=== PATIENT | female | born 1970 | race Caucasian/White ===

== ENCOUNTER 2017-05-24 08:14 | Outpatient (CLI) | payer OTHER | END 2017-05-24 08:15 | disposition home or self-care (01) | LOC: BICMAMMO 08:14 | PROVIDERS: ATTEND Obstetrics & Gynecology | DX: Z12.31 Encounter for screening mammogram for malignant neoplasm of breast (principal); R92.1 Mammographic calcification found on diagnostic imaging of breast | CPT/HCPCS: 77063; 77067 ==

== ENCOUNTER 2017-12-26 13:40 | Observation (INO) | payer OTHER ==
[~2017-12-26 13:40] MED LIST: ISOVUE-370 76%-LOCM 1 ML ONE
[2017-12-26 14:01] LABS: #Basophils 0.1 thou/uL (0.0-0.2); #Eosinphils 0.1 thou/uL (0.0-0.7); #Lymphocytes 3.3 thou/uL (1.20-3.40); #Monocytes 0.6 thou/uL (0.11-0.59); #Neutrophils 6.6 thou/uL (1.40-6.50); %Basophils 0.7 % (0.0-1.0); %Lymphocytes 30.7 % (21.0-51.0); %Monocytes 5.5 % (0.0-10.0); %Neutrophils 62.1 % (42.0-75.0); Hemoglobin 14.5 g/dL (12.0-16.0); Mean Corpuscular HGB CONC 32.8 g/dL (32.0-36.0); Mean Corpuscular Hemoglobin 31.6 pg (27.0-31.0); Mean Corpuscular Volume 96.4 fL (78.0-98.0); Platelet Count 313 thou/uL (130-400); RBC Distribution Width 10.9 % (11.5-14.5); White Blood Cell (WBC) Count 10.6 thou/uL (4.8-10.8)
[2017-12-26 14:13] LABS: PTT 33.2 SEC (22.9-36.1); Prothrombin Time 13.6 SEC (12.0-14.7)
[2017-12-26 14:14] LABS: ALT (SGPT) 43 U/L (8-55); AST (SGOT) 27 U/L (5-34); Albumin 4.7 g/dL (3.5-5.0); Alkaline Phosphatase 81 U/L (40-150); Anion Gap 12 mmol/L (10-20); BUN (Urea Nitrogen) 11 mg/dL (7.0-18.7); Bilirubin, Total 0.4 mg/dL (0.2-1.2); CK (CPK) 73 U/L (29-168); Calc. Creatinine Clearance 0 mL/min (70-130); Calcium 9.9 mg/dL (7.8-10.44); Carbon Dioxide 26 mmol/L (22-29); Chloride 104 mmol/L (98-107); Estimated GFR-MDRD 69; Globulin 3.3 g/dL (2.4-3.5); Glucose 111 mg/dL (70-105); Potassium 3.8 mmol/L (3.5-5.1); Sodium 138 mmol/L (136-145)
[2017-12-26 14:18] LABS: CKMB 0.7 ng/mL (0-6.6); Troponin I Less than 0.010 ng/mL (< 0.028)
--- NOTE | 2017-12-26 14:21 | CT ---
CT BRAIN NONCONTRAST: DATE: 12-26-17 TIME: 2:02 P.M. HISTORY: 47-year-old female with acute stroke symptoms: Sudden onset right sided visual changes, dizziness, na usea, confusion/altered mental status, and dysarthria. This acute stroke protocol report was called STAT at 2:09 p.m. on 12-26-17. Code CR FINDINGS: There is no midline shift or any other mass effect. There is no evidence of acute intracranial hemor rhage, large cortical infarct, obstructive hydrocephalus, or extraaxial fluid collection. The calvar ium is intact. IMPRESSION: No acute intracranial findings. deidra POS: [facility]
--- NOTE | 2017-12-26 15:11 | CT ---
CT ARTERIOGRAM NECK WITH IV CONTRAST AND 3D MIP IMAGING: CT ARTERIOGRAM HEAD WITH IV CONTRAST AND 3D MIP IMAGING: CT BRAIN WITH IV CONTRAST: HISTORY: Altered mental status. Difficulty seeing out of right eye. Dizziness. Nausea. FINDINGS: There is a bovine origin of the great vessels at the aortic arch. There is good contrast flow into e ach carotid and vertebral system. At each carotid bifurcation, the arterial structures are widely patent. No significant plaque is elvin dent. The [place] is intact. There is good flow into each cerebral and cerebellar system. No foc al aneurysm or thrombus is evident. A heterogeneous, low density, cystic area is present within the right thyroid lobe. IMPRESSION: No significant abnormalities are demonstrated. The findings were called to Dr. Joiner in the emergency department at 1424 hours. CODE CR POS: DYLAN
[2017-12-26] MEDS ORDERED: Ondansetron PF 4 MG/2 ML Vial ONE (15:31)
[2017-12-26] MEDS ORDERED: Senokot S 8.6-50 MG TAB PO PRN (17:31)
[2017-12-26] MEDS ORDERED: Ondansetron PF 4 MG/2 ML Vial IVP PRN (17:31)
--- NOTE | 2017-12-26 17:50 | HP ---
PRIMARY CARE PROVIDER: None. CHIEF COMPLAINT: Dizziness. HISTORY OF PRESENT ILLNESS: Ms. Jules is a pleasant 47-year-old lady who was seen at [facility] on 12/26/2017. She works at the [employer]. She reports that when she woke up this morning she felt confused. S he also reports dizziness, like she was on a boat. She went to work. At work, she had nausea. She was also found to be stuttering. She also reports right-sided blurriness of vision. She reports tara t she has a sensation of discomfort behind the right eye. She came to the emergency room because of the above symptoms. REVIEW OF SYSTEMS: All other systems reviewed and found to be negative. PAST MEDICAL HISTORY: Dyslipidemia. PAST SURGICAL HISTORY: section, laparoscopic cholecystectomy. SOCIAL HISTORY: The patient denies tobacco use, alcohol use or recreational drug use. FAMILY HISTORY: Significant for coronary artery bypass graft in her father. ALLERGIES: HYDROCODONE. CURRENT MEDICATIONS: Atorvastatin 10 mg in the morning. PHYSICAL EXAMINATION: GENERAL: Ms. Jules is awake and alert, not in acute distress. VITAL SIGNS: Blood pressure is 126/82, pulse 93, respiratory rate 18, and oxygen saturation 97% on r oom air. She is afebrile. EYES: No scleral icterus. No conjunctival pallor. She does have diminished visual acuity in the ri ght eye. There is no conjunctival injection. ENT: Moist mucosal membranes, no oropharyngeal erythema or exudates. NECK: Supple, nontender, trachea is midline. RESPIRATORY: Accessory muscles of breathing are not active. Chest wall movements are symmetric bila terally. LUNGS: Clear to auscultation without wheeze, rhonchi or crepitations. CARDIOVASCULAR: S1 and S2 are heard, regular. Peripheral pulses palpable. No carotid bruit, no per icardial rub. ABDOMEN: Soft, nontender, bowel sounds are heard, no hepatomegaly, no splenomegaly. NEUROLOGIC: Diminished visual acuity in the right eye as described above. Otherwise, cranial nerves II-XII are intact. Power is 5/5 in all 4 extremities. No focal motor or sensory deficits. Deep te ndon reflexes are 2+, plantar reflexes downgoing bilaterally. LYMPHATIC: No cervical lymphadenopathy. MUSCULOSKELETAL: Power is 5/5 in all 4 extremities. SKIN: No rashes or subcutaneous nodules. PSYCHIATRIC: Normal mood, normal affect, patient is oriented to person, place, and time. LABORATORY DATA: Ms. Jules's labs and investigations were reviewed. Electrocardiogram shows yolette l sinus rhythm, no ST changes to suggest an acute coronary syndrome. CT scan of the brain without co ntrast is unremarkable. She also had a CT angiogram of [place] and the neck, which did not show any significant abnormalities. She has an unremarkable CBC, INR 1.0 and an unremarkable compreh ensive metabolic profile. Troponin I is normal. ASSESSMENT AND PLAN: Ms. Jules is a pleasant 47-year-old lady who was seen at [facility] on 12/26/2017. Her problem list includes: 1. Vertigo: Ms. Jules is presenting with vertigo. She will be admitted to the hospital for furth er management. I am ordering MRI of the brain. We will also consult Neurology Service for opinion a nd help with management. She also has diminished visual acuity in the right eye. Ophthalmology serv ice is being consulted to rule out ophthalmic causes for the change in visual acuity. I will start h er on aspirin and continue her statin. 2. Dyslipidemia: Continue statin. Many thanks for allowing me to participate in your patient's care. LEVEL OF RISK: Moderate. LEVEL OF COMPLEXITY: Moderate.
[2017-12-26 18:27] VITALS: BMI 36.6
[2017-12-26] MEDS ORDERED: Atorvastatin Calcium 20 MG TAB PO SCH (21:00)
[2017-12-27 06:01] LABS: #Basophils 0.1 thou/uL (0.0-0.2); #Eosinphils 0.2 thou/uL (0.0-0.7); #Lymphocytes 2.6 thou/uL (1.20-3.40); #Monocytes 0.6 thou/uL (0.11-0.59); #Neutrophils 5.9 thou/uL (1.40-6.50); %Basophils 0.9 % (0.0-1.0); %Eosinophils 1.8 % (0.0-10.0); %Lymphocytes 27.6 % (21.0-51.0); %Monocytes 6.8 % (0.0-10.0); Hemoglobin 13.2 g/dL (12.0-16.0); Mean Corpuscular HGB CONC 32.8 g/dL (32.0-36.0); Mean Corpuscular Hemoglobin 31.9 pg (27.0-31.0); Mean Corpuscular Volume 97.2 fL (78.0-98.0); Platelet Count 253 thou/uL (130-400); Red Blood Cell (RBC) Count 4.15 mill/uL (4.20-5.40); White Blood Cell (WBC) Count 9.4 thou/uL (4.8-10.8)
[2017-12-27 06:14] LABS: Anion Gap 8 mmol/L (10-20); BUN (Urea Nitrogen) 12 mg/dL (7.0-18.7); Calc. Creatinine Clearance 147 mL/min (70-130); Calcium 9.2 mg/dL (7.8-10.44); Carbon Dioxide 29 mmol/L (22-29); Cardiac Risk 6.3 (Less than 4.5); Chloride 106 mmol/L (98-107); Cholesterol 201 mg/dl (< 200 Desired); Estimated GFR-MDRD 85; Glucose 110 mg/dL (70-105); HDL Cholesterol 32 mg/dL (>60 Neg Risk); LDL Cholesterol, Calculated 144 mg/dL; Potassium 4.2 mmol/L (3.5-5.1); Sodium 139 mmol/L (136-145); Triglycerides 126 mg/dL (Less than 150)
[2017-12-27] MEDS: Acetaminophen 325 MG TAB PO PRN ×2 (08:04→15:45)
[2017-12-27] MEDS ORDERED: Aspirin 325 mg Enteric Coated Tablet PO SCH (09:00)
[2017-12-27] MEDS ORDERED: Enoxaparin Sodium 40 MG/0.4 ML SYRINGE SC SCH (09:00)
--- NOTE | 2017-12-27 09:18 | MRI ---
MRI BRAIN WITHOUT CONTRAST: Date: 12/27/17 HISTORY: Sudden onset right-sided visual change, dizziness, nausea, confusion, altered mental status, and dysa rthria. COMPARISON: None. TECHNIQUE: MRI brain is performed without intravenous Gadolinium administration. Multisequential, multiplanar im aging is performed. FINDINGS: No hemorrhage on the axial gradient echo sequence. Calvarium has a normal marrow signal intensity. Midline brain parenchymal structures are unremarkable . No parenchymal mass, mass effect, or midline shift. Brain volume is age-appropriate. Cortical [place]aac-wh ite matter differentiation is preserved. Ventricles and sulci are patent and symmetric. Central arterial flow-voids are maintained. Absent restricted diffusion. Minimal mucosal thickening of the ethmoid air cells. Minimal opacification of the right mastoid air c ells. IMPRESSION: Absent restricted diffusion. No acute infarct. POS: [facility]
[2017-12-27 16:04] VITALS: BP 108/64; TEMP 97.9
--- NOTE | 2017-12-27 18:57 | CON ---
NEUROLOGY CONSULTATION DATE OF CONSULTATION: 12/27/2017 CONSULTING PHYSICIAN: Hospitalist Service. IMPRESSION: Vertiginous migraine. PLAN: 1. The patient is going to be discharged home. 2. Outpatient followup as necessary. Ms. Jules is a 47-year-old white female with a distant history of migraine headaches. She awoke ye sterday with dizziness and blurred vision. She became quite nauseated but tried to go to work. She was given Zofran at work but did not really feel a whole lot better. Vision continued to be quite di storted. She started having some word finding difficulty. She became concerned and decided to go to the emergency room. She started developing a headache later on after all these symptoms began. She was seen by Ophthalmology yesterday and there was no evidence of any intraocular disease. After adm ission, she had an MRI of the brain which was normal. Her lab work was unremarkable other than a lip id profile with a ratio of 6.3. Her vital signs have been stable. She has been afebrile. Her CT an giogram of the carotids and cerebral vessels were all unremarkable. She feels significantly better t abilio. She has some dull discomfort behind the right eye. PAST MEDICAL HISTORY: Hyperlipidemia and migraine. SOCIAL HISTORY: She works at [employer]. No tobacco or alcohol use. ALLERGIES: HYDROCODONE. MEDICATIONS: Lipitor. FAMILY HISTORY: Noncontributory. REVIEW OF SYSTEMS: Otherwise, negative for any focal neurologic complaints. PHYSICAL EXAMINATION: GENERAL: She is a slightly overweight middle-aged woman, in no distress. VITAL SIGNS: Blood pressure 108/64, pulse 80, respirations 16, temperature 97.9. HEENT: Unremarkable. NEUROLOGIC: She is alert and appropriate. Her speech is fluent and clear. Her exam is otherwise no nfocal. There are no abnormal movements. Imaging was reviewed. SUMMARY: A middle-aged woman with a constellation of symptoms consistent with a migraine. Her pretty p has been negative. This has not been a frequent problem for her. Therefore, we will just monitor her for now.
--- NOTE | 2017-12-28 09:23 | DIS ---
DATE OF ADMISSION: 12/26/2017 DATE OF DISCHARGE: 12/27/2017 DISCHARGE DISPOSITION: Home. FOLLOWUP: 1. Follow up with primary care physician, Dr. Kelsea Guy in 1 week. 2. Follow up with Dr. Manzo in 10 days. ALLERGIES: The patient is allergic to HYDROCODONE. The patient was seen on the day of discharge, denies any new complaint, no chest pain, shortness of b reath or palpitations. BRIEF HOSPITAL COURSE: The patient is a 47-year-old female with hyperlipidemia who presented to the hospital with dizziness on 12/26/2017. Please refer to the history and physical for further details. The patient was admitted to the hospital with a diagnosis of dizziness, rule out CVA. She underwent a CT scan of the brain that was essentially negative. A CT angiogram of the head and neck was negati ve for hemodynamically significant stenosis. She then underwent an MRI of the brain without contrast that was negative for acute CVA. An echocardiogram showed ejection fraction of 60%-65% with mild co ncentric left ventricular hypertrophy, mild mitral regurgitation, mild tricuspid regurgitation and mi ld pulmonic regurgitation. She was evaluated by Dr. Manzo. According to Dr. Manzo, the patient probably has vertiginous migraine. Dr. Manzo however, recommended to start a low dose aspirin as w ell. She has been cleared by Neurology for discharge. FINAL DIAGNOSES: 1. Dizziness, probably secondary to vertiginous migraine. 2. History of migraines. 3. Hyperlipidemia. 4. Obesity with a BMI at 36.6. 5. Chronic kidney disease stage 2. SIGNIFICANT LABORATORY DATA: Cholesterol 201, LDL 144, HDL 32, triglyceride 126. Plan of care was discussed with the patient in detail. She stated understanding.
== END 2017-12-27 17:49 | disposition home or self-care (01) ==
LOC: ERS 13:40 → 2SE 18:12
PROVIDERS: ADMIT Internal Medicine; ATTEND Internal Medicine
DX: R42 Dizziness and giddiness (principal); G43.909 Migraine, unspecified, not intractable, without status migrainosus; H53.8 Other visual disturbances; E78.5 Hyperlipidemia, unspecified; N18.2 Chronic kidney disease, stage 2 (mild); I08.3 Combined rheumatic disorders of mitral, aortic and tricuspid valves; E66.9 Obesity, unspecified; Z68.36 Body mass index [BMI] 36.0-36.9, adult; Z79.899 Other long term (current) drug therapy; Z88.5 Allergy status to narcotic agent
CPT/HCPCS: 36415; 36416; 70450; 70496; 70498; 70551; 80048; 80053; 80061; 82550; 82553; 84484; 85025; 85610; 85730; 93005; 93306; 96372; 96374; G0378; G8978-GP-CH; G8979-GP-CH; G8980-GP-CH; G8987-GO-CI; G8988-GO-CI; G8989-GO-CI; J1650; J2405

== ENCOUNTER 2018-07-18 13:09 | Outpatient (CLI) | payer OTHER ==
--- NOTE | 2018-07-18 14:06 | MMO ---
Bilateral MAMMO Bilat Diag [facility]. CLINICAL HISTORY: Patient is 47 years old and is seen for diagnostic exam and lump or thickening in the left breast at 12 o'clock. The patient has no family history of breast cancer. The patient has no personal history of cancer. VIEWS: The views performed were: bilateral craniocaudal with tomosynthesis; bilateral mediolateral oblique with tomosynthesis; and bilateral mediolateral. FILMS COMPARED: The present examination has been compared to prior imaging studies performed at [facility] on 09/17/2009, 05/24/2017 and 07/18/2018. MAMMOGRAM FINDINGS: The breasts are heterogeneously dense, which could obscure a lesion on mammography. Finding 1: There are stable benign appearing calcifications seen in both breasts. Finding 2: There are stable benign appearing densities seen in both breasts. Finding 3: Ultrasound the palpable finding. Cysts. There are no suspicious masses, suspicious calcifications, or new areas of architectural distortion. IMPRESSION: FINDING 1: STABLE CALCIFICATIONS IN BOTH BREASTS ARE BENIGN. FINDING 2: STABLE BENIGN APPEARING DENSITIES IN BOTH BREASTS ARE BENIGN. FINDING 3: FINDING IN THE LEFT BREAST IS BENIGN. ULTRASOUND THE PALPABLE FINDING. CYSTS A ROUTINE FOLLOW-UP MAMMOGRAM IN 1 YEAR IS RECOMMENDED. THE RESULTS OF THIS EXAM WERE SENT TO THE PATIENT. ACR BI-RADS Category 2 - Benign finding MAMMOGRAPHY NOTE: 1. A negative mammogram report should not delay a biopsy if a dominant of clinically suspicious mass is present. 2. Approximately 10% to 15% of breast cancers are not detected by mammography. 3. Adenosis and dense breasts may obscure an underlying neoplasm.
--- NOTE | 2018-07-18 16:17 | ULT ---
LEFT BREAST ULTRASOUND: HISTORY: The patient presents for a palpable finding evaluation. COMPARISON: Diagnostic mammogram from 07/18/2018. FINDINGS: Ultrasound examination was performed to the region of palpable concern, which is at approximately 12 o'clock. Approximately 4 cm from the nipple, there is an area of multiple cysts. There is a septate d cyst, measuring approximately 1 cm in diameter. There are several other adjacent smaller cysts. T here is asymmetric, echogenic glandular tissue in this region as well. I feel that the combination o f the asymmetric echogenic glandular tissue and these multiple cysts probably account for the palpabl e finding. IMPRESSION: 1. BI-RADS category 2-Benign findings. Continued annual follow-up screening mammography. 2. Breast cysts and asymmetric breast parenchyma appear to account for the palpable finding. POS: OFF
== END 2018-07-18 13:10 | disposition home or self-care (01) ==
LOC: BICMAMMO 13:09
PROVIDERS: ATTEND Obstetrics & Gynecology
DX: N63.22 Unspecified lump in the left breast, upper inner quadrant (principal); R92.1 Mammographic calcification found on diagnostic imaging of breast; N64.89 Other specified disorders of breast; N60.02 Solitary cyst of left breast
CPT/HCPCS: 77066; G0279